=== PATIENT | female | born 2000 | race Caucasian/White ===

== ENCOUNTER 2022-10-28 11:21 | Emergency (ER) | payer OTHER ==
[~2022-10-28] VITALS: Ht 162.6 cm; Wt 54.4 kg
[2022-10-28 11:27] VITALS: BP_SYST 141
--- NOTE | 2022-10-28 11:30 | NUR ---
Patient to ER [facility] to gown for evaluation. Side rails up.
[2022-10-28] MEDS ORDERED: MECLIZINE HCL 25 MG TABLET (ANITVERT) PO ONE (11:45)
[2022-10-28 11:54] VITALS: BP_SYST 141
--- NOTE | 2022-10-28 12:00 | NUR ---
ER DR. EL EXAMINING PT
--- NOTE | 2022-10-28 12:34 | NUR ---
Patient given written and verbal discharge instructions and verbalizes understanding. ER MD discussed with patient the results and treatment provided. Patient in stable condition. ID arm band removed. Rx given. Patient educated on pain management and to follow up with PMD. Pain Scale 0/10. Opportunity for questions provided and answered. Medication side effect fact sheet provided.
== END 2022-10-28 11:54 ==
LOC: SED 11:21
DX: Z02.89 Encounter for other administrative examinations (principal); H81.10 Benign paroxysmal vertigo, unspecified ear; Z79.899 Other long term (current) drug therapy
CPT/HCPCS: 99283; J8597